=== PATIENT | male | born 1935 | race Caucasian/White ===

== ENCOUNTER 2017-03-17 15:47 | Outpatient (CLI) | payer MEDICARE ==
--- NOTE | 2017-03-17 19:30 | MRI ---
BRAIN MRI WITHOUT CONTRAST 03/17/17 COMPARISON: None. HISTORY: Hallucinations, memory loss. TECHNIQUE: Multiplanar and multisequence MR imaging of the brain is obtained without contrast. FINDINGS: The diffusion weighted imaging demonstrates no evidence for acute infarction. The axial gradient echo imaging demonstrates no evidence for intracranial hemorrhage, There is promi nent degenerative change at the atlanto-axial interspace with significant posterior and degenerative pannus formation. There is also significant multilevel upper cervical spine degenerative change, no t optimally assessed on this exam. Regional bone marrow signal intensity appears within normal limit s. Imaged paranasal sinuses and mastoid air cells are grossly unremarkable. Arterial flow voids at t he axial level of the skull base appear unremarkable on the T2 weighted imaging. There is moderate diffuse cerebral volume loss. There are multiple subcentimeter punctate foci of in creased T2 and FLAIR signal in the periventricular and deep white matter suggesting small vessel dis ease. IMPRESSION: Evidence of small vessel disease and cerebral volume loss. No evidence for acute infraction or intra cranial hemorrhage. No midline shift or mass effect is evident. POS: RED
== END 2017-03-17 15:48 | disposition home or self-care (01) ==
LOC: TBSIIMAG 15:47
PROVIDERS: ATTEND Psychiatry & Neurology Neurology
DX: R44.3 Hallucinations, unspecified (principal); I73.9 Peripheral vascular disease, unspecified
CPT/HCPCS: 70551

== ENCOUNTER 2019-02-28 11:26 | Inpatient (IN) | payer MEDICARE ==
[2019-02-28 12:16] LABS: #Eosinphils 0.2 thou/uL (0.0-0.7); #Lymphocytes 1.2 thou/uL (1.20-3.40); #Monocytes 0.5 thou/uL (0.11-0.59); #Neutrophils 4.6 thou/uL (1.40-6.50); %Basophils 0.6 % (0.0-1.0); %Lymphocytes 17.7 % (21.0-51.0); %Monocytes 7.4 % (0.0-10.0); %Neutrophils 71.4 % (42.0-75.0); Hemoglobin 13.4 g/dL (14.0-18.0); Mean Corpuscular HGB CONC 31.1 g/dL (32.0-36.0); Mean Corpuscular Hemoglobin 28.9 pg (27.0-31.0); Mean Corpuscular Volume 92.9 fL (78.0-98.0); Mean Platelet Volume 8.5 fL (7.4-10.4); Platelet Count 181 thou/uL (130-400); RBC Distribution Width 13.4 % (11.5-14.5); Red Blood Cell (RBC) Count 4.64 mill/uL (4.70-6.10); White Blood Cell (WBC) Count 6.5 thou/uL (4.8-10.8)
[2019-02-28 12:36] LABS: ALT (SGPT) 17 U/L (8-55); AST (SGOT) 26 U/L (5-34); Albumin 3.7 g/dL (3.4-4.8); Alkaline Phosphatase 42 U/L (40-110); Anion Gap 11 mmol/L (10-20); BUN (Urea Nitrogen) 18 mg/dL (8.4-25.7); Bilirubin, Total 0.5 mg/dL (0.2-1.2); Calc. Creatinine Clearance 0 mL/min (70-130); Calcium 9.3 mg/dL (7.8-10.44); Carbon Dioxide 27 mmol/L (23-31); Chloride 102 mmol/L (98-107); Estimated GFR-MDRD 64; Globulin 3.1 g/dL (2.4-3.5); Glucose 177 mg/dL (83-110); Potassium 3.9 mmol/L (3.5-5.1); Protein, Total 6.8 g/dL (5.8-8.1); Sodium 136 mmol/L (136-145)
[2019-02-28 13:31] LABS: CK (CPK) 136 U/L (30-200); Lipase 31 U/L (8-78)
--- NOTE | 2019-02-28 13:36 | RAD ---
PORTABLE CHEST: Date: 02/28/19 INDICATION: Weakness. COMPARISON: 09/17/16. FINDINGS: Borderline cardiomegaly appears stable. 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 L ungs appear clear. There are numerous ununited left rib fractures which are present on the prior exam and appear unchang ed. Prominent degenerative changes at the left shoulder. A right shoulder prosthesis is noted. Deform ity of the left clavicle is again noted. IMPRESSION: Stable findings as described above without acute process. POS: RED
--- NOTE | 2019-02-28 13:38 | CT ---
CT HEAD WITHOUT CONTRAST: Date: 02/28/19 Comparison made to MRI brain dated 03/17/17. FINDINGS: There is cortical atrophy. Ventricles have normal size and position. No evidence of mass or hemorrhag e. No evidence of acute infarct. IMPRESSION: No acute abnormality identified. POS: NESTOR
[2019-02-28 14:03] LABS: Bilirubin Negative (Negative); Blood, Urine Negative (Negative); Clarity Clear (Clear); Glucose, Urine (Dipstick) Normal (Negative); Leukocyte Negative Leu/uL (Negative); Nitrite Negative (Negative); Protein, Urine (Dipstick) Negative (Neg-Trace); Urobilinogen Normal mg/dL (Less than 2)
[2019-02-28] MEDS ORDERED: traMADol HCl 50 MG TAB ONE (20:13)
[2019-02-28] MEDS ORDERED: Ondansetron ODT 4 MG TAB PO PRN (21:13)
[2019-02-28] MEDS ORDERED: Acetaminophen 650 MG Suppository PR PRN (21:13)
[2019-02-28] MEDS ORDERED: Ondansetron PF 4 MG/2 ML Vial IVP PRN (21:13)
[2019-02-28] MEDS ORDERED: hydrALAZINE 20 MG/ML VIAL SLOW IVP PRN (21:17)
[2019-03-01] MEDS ORDERED: Sodium Chloride 0.9% 1,000 ML IV SCH (00:16)
[2019-03-01 01:53] VITALS: BMI 25.1
[2019-03-01] MEDS: Acetaminophen 325 MG TAB PO PRN ×2 (04:29→11:08)
[2019-03-01 05:18] LABS: #Eosinphils 0.1 thou/uL (0.0-0.7); #Lymphocytes 1.1 thou/uL (1.20-3.40); #Monocytes 0.5 thou/uL (0.11-0.59); #Neutrophils 3.2 thou/uL (1.40-6.50); %Basophils 0.6 % (0.0-1.0); %Eosinophils 2.9 % (0.0-10.0); %Lymphocytes 22.8 % (21.0-51.0); %Monocytes 9.9 % (0.0-10.0); %Neutrophils 63.8 % (42.0-75.0); Hemoglobin 12.7 g/dL (14.0-18.0); Mean Corpuscular HGB CONC 32.9 g/dL (32.0-36.0); Mean Corpuscular Hemoglobin 30.9 pg (27.0-31.0); Mean Corpuscular Volume 93.8 fL (78.0-98.0); Mean Platelet Volume 8.2 fL (7.4-10.4); Platelet Count 169 thou/uL (130-400); RBC Distribution Width 13.3 % (11.5-14.5); Red Blood Cell (RBC) Count 4.12 mill/uL (4.70-6.10)
[2019-03-01 05:43] LABS: Anion Gap 11 mmol/L (10-20); BUN (Urea Nitrogen) 12 mg/dL (8.4-25.7); Calc. Creatinine Clearance 73 mL/min (70-130); Calcium 8.6 mg/dL (7.8-10.44); Carbon Dioxide 24 mmol/L (23-31); Cardiac Risk 4.2 (Less than 4.5); Chloride 106 mmol/L (98-107); Cholesterol 158 mg/dl (< 200 Desired); Estimated GFR-MDRD 80; Glucose 161 mg/dL (83-110); HDL Cholesterol 38 mg/dL (>60 Neg Risk); LDL Cholesterol, Calculated 102 mg/dL; Sodium 137 mmol/L (136-145); Triglycerides 91 mg/dL (Less than 150)
[2019-03-01] MEDS ORDERED: Dextrose 5% in Water 1,000 ML IV PRN (05:54)
[2019-03-01] MEDS ORDERED: Dextrose 50% Abboject 50 ML SYRINGE SLOW IVP PRN (05:54)
--- NOTE | 2019-03-01 06:29 | HP ---
PRIMARY CARE DOCTOR: Dr. Tiesha Adam. CODE STATUS: Full code. TIME OF EVALUATION: Around 8:00 p.m. CHIEF COMPLAINT: Evaluation for weakness. HISTORY OF PRESENT ILLNESS: This is an 83-year-old male patient with past medical history of diabetes, came to the hospital after having weakness, especially bilateral lower extremities associated with dizziness and feeling lightheaded. The symptoms were mild to moderate with no clear triggers, no alleviating factors. The symptoms at some point got worse to the point the patient was unable to ambulate because of the dizziness. The symptoms have been present for the past few days. REVIEW OF SYSTEMS: CONSTITUTIONAL: No fever, chills, or generalized weakness. RESPIRATORY: No cough. No sputum production. CARDIOVASCULAR: The patient has no chest pain or palpitations. GASTROINTESTINAL: No nausea, vomiting, or diarrhea. NEURO: The patient had dizziness, feeling lightheaded. PAST MEDICAL HISTORY: Diabetes. PAST SURGICAL HISTORY: Right shoulder surgery, bilateral knee surgery, back surgery, appendectomy, and tonsillectomy. PSYCHIATRIC HISTORY: Dementia. SOCIAL HISTORY: No smoking history. FAMILY HISTORY: Reviewed and noncontributory to current presentation. KNOWN ALLERGIES: No known drug allergies. REPORTED MEDICATIONS: Unknown. PHYSICAL EXAMINATION: VITAL SIGNS: On presentation, blood pressure 176/91, with heart rate 65, respiratory rate was 16. Pain 0/10. Oxygen saturation was 96% on room air. GENERAL APPEARANCE: The patient is alert, oriented, in no acute distress. HEENT: Eyes, normal conjunctivae. Moist oral mucosa. Anicteric. No JVD. RESPIRATORY: Bilateral air entry. No rales. No wheezes. Symmetric expansion. CARDIOVASCULAR: Normal rate. Regular rhythm. No murmurs. No gallop. No edema. ABDOMEN: Soft. Normal bowel sounds. MUSCULOSKELETAL: Baseline range of motion and strength. SKIN: Warm and intact. No pallor. No rash. No redness. Capillary refill seems to be intact. NEURO: No evidence of any new focal weakness. However, the patient has bilateral lower extremity weakness, although strength has recovered by the time of my examination as per patient. The patient has mobility in both lower extremities. PSYCH: The patient is in good mood. No anxiety. Optimal judgment. DIAGNOSTIC DATA: EKG was done. 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 Chest x-ray was reviewed. Stable findings as described above without acute process. Brain CT was done. The patient has no acute abnormalities. LABORATORY DATA: Reviewed. The patient has white count 6.5, hemoglobin 13.4, MCV 92.9, and platelet count . Sodium 136, potassium 3.9, chloride 102, carbon dioxide 27, anion gap 11, BUN 18, creatinine 1.09, GFR 64, glucose , calcium 9.3. LFTs were negative. Beta natriuretic peptide 129. Troponin was negative. Lipid panel was reviewed and was normal. Lipase 31. UA was done and was negative. ASSESSMENT AND PLAN: The patient will be placed in the hospital with following medical problems. 1. Dizziness and lower extremity weakness. The patient will get a stroke protocol to rule out any transient ischemic attack or similar episodes of acute cerebrovascular accident. We will do echo, MRI, and carotid Doppler. We will follow results and treat accordingly. 2. Diabetes. Reconcile home medications. As of now, it is uncontrolled. The patient has hyperglycemia of 177. 3. Deep venous thrombosis prophylaxis. 4. Hyperlipidemia. Reconcile home medications and adjust treatment as needed. 5. Trigeminal neuralgia. Reconcile home medications and adjust treatment as needed. This is not new. Job ID: [id number]
[2019-03-01] MEDS ORDERED: Prevnar 13-Val Conj/PF 0.5 ML SYRINGE IM ONE (09:00)
[2019-03-01] MEDS ORDERED: FLU VACC TS2019-20(65YR UP)/PF 180 MCG/0.5 ML SYRINGE IM ONE (09:00)
[2019-03-01] MEDS: Aspirin 325 mg Enteric Coated Tablet PO SCH (09:40)
[2019-03-01] MEDS: Enoxaparin Sodium 40 MG/0.4 ML SYRINGE SC SCH (09:40)
--- NOTE | 2019-03-01 10:35 | MRI ---
MRI BRAIN NONCONTRAST: DATE: 03/01/19 HISTORY: 83-year-old male with TIA. COMPARISON: MRI of 03/17/17. FINDINGS: On the current study, there is motion artifact degrading the images. The T2-weighted axial sequence i s severely degraded. The FLAIR axial sequence is moderately severely degraded. There is a new finding of an approximately 1.5 x 0.8 cm T2-hyperintense focus in the upper right cere bral centrum semiovale just deep and anterior to the right precentral gyrus, with strongly restricted diffusion. There is no associated hemorrhage. Scattered mild chronic ischemic white matter changes a re present in the bilateral cerebral hemisphere, as demonstrated previously. Ventricles are normal in size and configuration. Diffuse age-appropriate brain parenchymal volume loss. No mass effect, midli ne shift, or extra-axial fluid collection. 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 IMPRESSION: Evidence for acute small right upper frontal cerebral white matter lacunar infarction. JN Felisha POS: CET
--- NOTE | 2019-03-01 11:49 | ULT ---
BILATERAL CAROTID DUPLEX ULTRASOUND: DATE: 03/01/19 HISTORY: TIA. TECHNIQUE: Orellana scale ultrasound with color flow and spectral Doppler imaging of the extracranial carotid artery systems performed bilaterally. FINDINGS: There is minimal plaque formation. The peak systolic velocity in the right ICA measures 53 cm/second with an end-diastolic velocity of 7 cm/second and a systolic ratio of 0.73. The peak systolic velocity in the left ICA measures 71 cm/second with an end-diastolic velocity of 17 cm/second and a systolic ratio of 0.75. Flow in both vertebral arteries remains antegrade. IMPRESSION: No evidence of hemodynamically significant stenosis. POS: OFF
[2019-03-01] MEDS: ALPRAZolam 0.25 MG TAB PO PRN ×2 (13:04→19:06)
[2019-03-01] MEDS: HumaLOG 300 UNITS/3 ML VIAL SC PRN ×2 (13:04→17:50)
--- NOTE | 2019-03-01 16:41 | PDOC.HOSPP ---
- Subjective Encounter Date: 03/01/19 Encounter Time: 16:30 Subjective: f/u for likely lacunar CVA on R-side. Some mild weakness in L arm but stood at bedside with PT. No other deficits reported but feels weak. - Objective Vital Signs & Weight: Vital Signs (12 hours) Temp Pulse Pulse Pulse Resp BP BP 03/01/19 16:00 97.6 F 78 18 03/01/19 15:48 66 75 144/81 H 152/89 H 03/01/19 12:00 98.6 F 68 18 03/01/19 08:00 98 F 71 16 03/01/19 07:00 97.5 F L 64 18 BP BP BP BP Pulse Ox 03/01/19 16:00 140/91 H 92 L 03/01/19 15:48 03/01/19 12:00 162/89 H 94 L 03/01/19 08:00 171/80 H 95 03/01/19 07:00 158/97 H 162/95 H 182/90 H 93 L Weight Admit Weight 190 lb 4.8 oz Weight 190 lb 4.8 oz I&O: 02/28/19 03/01/19 03/02/19 06:59 06:59 06:59 Intake Total 650 Output Total 325 Balance 325 Result Diagrams: 03/01/19 04:52 03/01/19 04:52 Additional Labs: Accuchecks 03/01/19 03/01/19 10:56 06:07 POC Glucose 195 H 152 H Laboratory Tests 02/28/19 02/28/19 02/28/19 12:19 12:19 12:27 Ammonia 24 Creatine Kinase 136 B-Natriuretic Peptide Triglycerides Cholesterol LDL Cholesterol, Calc HDL Cholesterol TSH 3rd Generation 3.2627 02/28/19 03/01/19 12:27 04:52 Ammonia Creatine Kinase B-Natriuretic Peptide 129.4 H Triglycerides 91 Cholesterol 158 LDL Cholesterol, Calc 102 HDL Cholesterol 38 TSH 3rd Generation Radiology Reviewed by me: Yes (MRI brain - lacunar infarct on R) EKG Reviewed by me: Yes (Tele - SR) Hospitalist ROS - Medication Medications: Active Medications Generic Name Dose Route Start Last Admin Trade Name Freq PRN Reason Stop Dose Admin Acetaminophen 650 mg 02/28/19 21:13 03/01/19 11:08 Tylenol PO 650 mg Q4H PRN Administration Headache/Fever/Mild Pain (1-3) Alprazolam 0.25 mg 03/01/19 12:22 03/01/19 13:04 Xanax PO 0.25 mg BIDPRN PRN Administration Anxiety Aspirin 325 mg 03/01/19 09:00 03/01/19 09:40 Ecotrin PO 325 mg DAILY CHARITY Administration Enoxaparin Sodium 40 mg 03/01/19 09:00 03/01/19 09:40 Lovenox SC 40 mg 0900 CHARITY Administration Insulin Human Lispro 0 units 03/01/19 05:54 03/01/19 13:04 Humalog SC 2 unit .MILD SLIDING SCALE PRN Administration Mild Correctional Scale - Exam General Appearance: NAD, awake alert Eye: PERRL, anicteric sclera ENT: normocephalic atraumatic, no oropharyngeal lesions Neck: supple, symmetric, no JVD, no thyromegaly, no lymphadenopathy, no carotid bruit Heart: RRR, no murmur, no gallops, no rubs, normal peripheral pulses Respiratory: CTAB, no wheezes, no rales, no ronchi, normal chest expansion Gastrointestinal: soft, non-tender, non-distended, normal bowel sounds, no palpable masses Extremities: no cyanosis, no clubbing, no edema Skin: normal turgor, no lesions Neurological: cranial nerve grossly intact Neurological - other findings: L arm weakness Musculoskeletal: generalized weakness Psychiatric: A&O x 3 Hosp A/P (1) CVA (cerebral vascular accident) Code(s): I63.9 - CEREBRAL INFARCTION, UNSPECIFIED Status: Acute Qualifiers: Laterality of affected vessel: right Plan: Lacunar, continue ASA 325mg daily, Lipitor, Stroke protocol, Rehab screening (2) Dementia Code(s): F03.90 - UNSPECIFIED DEMENTIA WITHOUT BEHAVIORAL DISTURBANCE Status: Chronic Plan: Continue Aricept (3) Diabetes mellitus Code(s): E11.9 - TYPE 2 DIABETES MELLITUS WITHOUT COMPLICATIONS Status: Chronic Plan: Resume home DM regimen, serial accuchecks (4) HTN (hypertension) Code(s): I10 - ESSENTIAL (PRIMARY) HYPERTENSION Status: Chronic Qualifiers: Hypertension type: essential hypertension Qualified Code(s): I10 - Essential (primary) hypertension Plan: Labile, resume Atenolol, titrate regimen to optimal response - Plan plan discussed w/ family, PT/OT, pediatric social worker, DVT proph w/SCDs Stable currently Continue ASA 325mg daily 2D echo pending PT/OT for functional assessment Rehab screening
--- NOTE | 2019-03-01 17:22 | EKG ---
Test Reason : Blood Pressure : / mmHG Vent. Rate : 059 BPM Atrial Rate : 060 BPM P-R Int : 000 ms QRS Dur : 154 ms QT Int : 458 ms P-R-T Axes : 000 -67 -30 degrees QTc Int : 453 ms Wide QRS rhythm Right bundle branch block Left anterior fascicular block Bifascicular block Abnormal ECG Confirmed by LUISA LINDSEY MD ([id number]), publication editor TAMRA GARCIA ([id number]) on 03/01/2019 5:22:25 PM Referred By: Confirmed By:LUISA LINDSEY MD
--- NOTE | 2019-03-01 20:45 | CON ---
DATE OF CONSULTATION: 03/01/2019 CONSULTING PHYSICIAN: Hospitalist Services. IMPRESSION: Small right cortical infarct with left-sided weakness. PLAN: 1. Statin has been added. 2. Continue aspirin. HISTORY OF PRESENT ILLNESS: Mr. Granados is an 83-year-old gentleman who is actually one of the junction boys of [employer]. 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 His noted that on Thursday he was unable to get up from his chair. He works out with a human resources trainer several days a week. He was tending to lift the left, subsequently brought him in for evaluation. MRI of the brain confirmed an acute area of cortical infarction in the right parietal region. His carotid ultrasound does not show any stenosis. His echocardiogram is pending. He has no cardiac history. He does have some mild memory difficulties. He still follows [employer] football. PAST MEDICAL HISTORY: As listed above. ALLERGIES: NONE REPORTED. SOCIAL HISTORY: No tobacco or alcohol. FAMILY HISTORY: Noncontributory. REVIEW OF SYSTEMS: Ten-system review of systems is otherwise negative. PHYSICAL EXAMINATION: GENERAL: He is a tall, thin, elderly gentleman, lying in bed, in no distress. VITAL SIGNS: Blood pressure 138/82, pulse 72, respirations 18, and temperature 98.7. HEENT: Pupils are equal. Conjunctiva are clear. Oropharynx is clear. Cranium , normocephalic and atraumatic. NECK: Supple. No lymphadenopathy. EXTREMITIES: No cyanosis or edema. NEUROLOGIC: He is awake and cooperative. His speech is fluent and clear. No facial asymmetry is noted. He has some drift and fix on the left side. He has antigravity strength in the left leg, but it is mildly diminished compared to the right. Sensation is intact. No abnormal movements are seen. IMAGING: EKG shows a sinus rhythm. SUMMARY: An 83-year-old gentleman with some left-sided weakness. I think he would probably be a good candidate for inpatient rehab. I agree with the addition of Lipitor. His workup is complete other than reviewing his echocardiogram. I will be available if there are any other questions. Job ID: [id number] [facility]
[2019-03-01] MEDS: Atorvastatin Calcium 40 MG TAB PO SCH (21:28)
[2019-03-01] MEDS: Donepezil HCl 10 MG TAB PO SCH (21:28)
[2019-03-02] MEDS: HumaLOG 300 UNITS/3 ML VIAL SC PRN ×2 (06:25→11:49)
[2019-03-02] MEDS ORDERED: METFORMIN HCL PO SCH (09:00)
[2019-03-02] MEDS ORDERED: Aspirin Chewable 81 MG TAB PO SCH (09:00)
[2019-03-02] MEDS ORDERED: Non-Formulary Item 1 EACH (Multivit-Min/Fa/Lycopen/Lutein [Centrum Silver Tablet] 1 EACH) PO SCH (09:00)
[2019-03-02] MEDS ORDERED: Calcium Carbonate + Vit D 1 TAB PO SCH (09:00)
[2019-03-02] MEDS ORDERED: [UNRECOGNIZED DRUG - OTHER] PO SCH (09:00)
[2019-03-02] MEDS ORDERED: [UNRECOGNIZED DRUG - MIXTURE] PO SCH (09:00)
[2019-03-02] MEDS ORDERED: LINAGLIPTIN PO SCH (09:00)
[2019-03-02] MEDS ORDERED: Cetirizine HCl 10 MG TAB PO SCH (09:00)
[2019-03-02] MEDS: Multivitamin W/ Minerals 1 TAB PO SCH (09:16)
[2019-03-02] MEDS: Citalopram 20 MG TAB PO SCH (09:16)
[2019-03-02] MEDS: Aspirin 325 mg Enteric Coated Tablet PO SCH (09:16)
[2019-03-02] MEDS: Atenolol 25 MG TAB PO SCH (09:16)
[2019-03-02] MEDS: Fenofibrate Nanocrystallized 145 MG TAB PO SCH (09:16)
[2019-03-02] MEDS: Calcium Carbonate + Vit D 1 TAB PO SCH (09:17)
[2019-03-02] MEDS: Loratadine 10 MG TAB PO SCH (09:17)
[2019-03-02] MEDS: Enoxaparin Sodium 40 MG/0.4 ML SYRINGE SC SCH (09:17)
--- NOTE | 2019-03-02 10:15 | PDOC.HOSPP ---
- Subjective Encounter Date: 03/02/19 Encounter Time: 10:00 Subjective: f/u for acute CVA of R-side with LUE weakness and mild ataxia. Feels a little better today and walked short distance with PT using RW. Appetite ok. - Objective Vital Signs & Weight: Vital Signs (12 hours) Temp Pulse Resp BP Pulse Ox 03/02/19 09:16 60 03/02/19 07:27 98.7 F 60 22 H 153/83 H 93 L 03/02/19 03:49 97.5 F L 60 18 131/66 94 L 03/02/19 00:00 97.3 F L 66 16 120/73 96 Weight Admit Weight 190 lb 4.8 oz Weight 190 lb 4.8 oz I&O: 03/01/19 03/02/19 03/03/19 06:59 06:59 06:59 Intake Total 650 20 Output Total 325 Balance 325 20 Result Diagrams: 03/01/19 04:52 03/01/19 04:52 Additional Labs: Accuchecks 03/02/19 03/01/19 03/01/19 06:06 23:53 16:42 POC Glucose 155 H 132 H 160 H 03/01/19 10:56 POC Glucose 195 H Laboratory Tests 02/28/19 02/28/19 02/28/19 12:19 12:19 12:27 Ammonia 24 Creatine Kinase 136 B-Natriuretic Peptide Triglycerides Cholesterol LDL Cholesterol, Calc HDL Cholesterol TSH 3rd Generation 3.2627 02/28/19 03/01/19 12:27 04:52 Ammonia Creatine Kinase B-Natriuretic Peptide 129.4 H Triglycerides 91 Cholesterol 158 LDL Cholesterol, Calc 102 HDL Cholesterol 38 TSH 3rd Generation Radiology Reviewed by me: Yes (Echo - EF 55-60%, diast dysfxn) EKG Reviewed by me: Yes (Tele - SR) Hospitalist ROS - Medication Medications: Active Medications Generic Name Dose Route Start Last Admin Trade Name Freq PRN Reason Stop Dose Admin Acetaminophen 650 mg 02/28/19 21:13 03/01/19 11:08 Tylenol PO 650 mg Q4H PRN Administration Headache/Fever/Mild Pain (1-3) Alprazolam 0.25 mg 03/01/19 12:22 03/01/19 19:06 Xanax PO 0.25 mg BIDPRN PRN Administration Anxiety Aspirin 325 mg 03/01/19 09:00 03/02/19 09:16 Ecotrin PO 325 mg DAILY CHARITY Administration Atenolol 25 mg 03/02/19 09:00 03/02/19 09:16 Tenormin PO 25 mg DAILY CHARITY Administration Atorvastatin Calcium 40 mg 03/01/19 21:00 03/01/19 21:28 Lipitor PO 40 mg HS CHARITY Administration Calcium/Vitamin D 1 tab 03/02/19 09:00 03/02/19 09:17 Caltrate 600 + Vit D PO 1 tab DAILY CHARITY Administration Citalopram Hydrobromide 40 mg 03/02/19 09:00 03/02/19 09:16 Celexa PO 40 mg DAILY CHARITY Administration Donepezil HCl 10 mg 03/01/19 21:00 03/01/19 21:28 Aricept PO 10 mg HS CHARITY Administration Enoxaparin Sodium 40 mg 03/01/19 09:00 03/02/19 09:17 Lovenox SC 40 mg 0900 CHARITY Administration Fenofibrate 145 mg 03/02/19 09:00 03/02/19 09:16 Tricor PO 145 mg DAILY CHARITY Administration Insulin Human Lispro 0 units 03/01/19 05:54 03/02/19 06:25 Humalog SC 2 unit .MILD SLIDING SCALE PRN Administration Mild Correctional Scale Iron/Minerals/Multivitamins 1 tab 03/02/19 09:00 03/02/19 09:16 Theragran M PO 1 tab DAILY CHARITY Administration Loratadine 10 mg 03/02/19 09:00 03/02/19 09:17 Claritin PO 10 mg DAILY CHARITY Administration - Exam General Appearance: NAD, awake alert Eye: PERRL, anicteric sclera ENT: normocephalic atraumatic, no oropharyngeal lesions Neck: supple, symmetric, no JVD, no thyromegaly, no lymphadenopathy Heart: RRR, no murmur, no gallops, no rubs, normal peripheral pulses Respiratory: CTAB, no wheezes, no rales, no ronchi, normal chest expansion Gastrointestinal: soft, non-tender, non-distended, normal bowel sounds Extremities: no cyanosis, no clubbing, no edema Skin: normal turgor, no lesions Neurological: cranial nerve grossly intact, no new deficit Neurological - other findings: LUE weakness Musculoskeletal: normal tone, generalized weakness Psychiatric: normal affect, A&O x 3 Hosp A/P (1) CVA (cerebral vascular accident) Code(s): I63.9 - CEREBRAL INFARCTION, UNSPECIFIED Status: Acute Qualifiers: Laterality of affected vessel: right Plan: Continue ASA, Lipitor, general stroke protocol, Inpt Rehab screening in progress (2) Dementia Code(s): F03.90 - UNSPECIFIED DEMENTIA WITHOUT BEHAVIORAL DISTURBANCE Status: Chronic Plan: Continue Aricept/Celexa (3) Diabetes mellitus Code(s): E11.9 - TYPE 2 DIABETES MELLITUS WITHOUT COMPLICATIONS Status: Chronic Plan: ISS, continue home DM regimen, ADA (4) HTN (hypertension) Code(s): I10 - ESSENTIAL (PRIMARY) HYPERTENSION Status: Chronic Qualifiers: Hypertension type: essential hypertension Qualified Code(s): I10 - Essential (primary) hypertension Plan: Continue home BP regimen, stable - Plan plan discussed w/ family, PT/OT, geriatric social worker, out of bed/ambulate, DVT proph w/SCDs Stable currently Continue ASA 325mg daily Continue Lipitor 40mg HS PT/OT for functional assessment Rehab screening in progress Trial Lidocaine 5% patch for neck/ear pain
[2019-03-02] MEDS: Lidocaine 5% Patch TD SCH (11:36)
[2019-03-02] MEDS: Atorvastatin Calcium 40 MG TAB PO SCH (20:28)
[2019-03-02] MEDS: Donepezil HCl 10 MG TAB PO SCH (20:31)
[2019-03-02] MEDS: Lidocaine Patch Removal 1 EACH TOP SCH (23:14)
[2019-03-03] MEDS: HumaLOG 300 UNITS/3 ML VIAL SC PRN ×3 (06:24→17:56)
[2019-03-03] MEDS: Aspirin 325 mg Enteric Coated Tablet PO SCH (09:26)
[2019-03-03] MEDS: Atenolol 25 MG TAB PO SCH (09:26)
[2019-03-03] MEDS: Loratadine 10 MG TAB PO SCH (09:28)
[2019-03-03] MEDS: Citalopram 20 MG TAB PO SCH (09:28)
[2019-03-03] MEDS: Fenofibrate Nanocrystallized 145 MG TAB PO SCH (09:28)
[2019-03-03] MEDS: Calcium Carbonate + Vit D 1 TAB PO SCH (09:28)
[2019-03-03] MEDS: Enoxaparin Sodium 40 MG/0.4 ML SYRINGE SC SCH (09:30)
[2019-03-03] MEDS: Multivitamin W/ Minerals 1 TAB PO SCH (09:30)
[2019-03-03] MEDS: Lisinopril 5 MG TAB PO SCH (10:21)
[2019-03-03] MEDS: Lidocaine 5% Patch TD SCH (10:22)
--- NOTE | 2019-03-03 14:27 | PDOC.HOSPP ---
- Subjective Subjective: Seen and examined. Patient sitting upright in bed, talking in full sentences, breathing well on room air. Patient significant other at bedside able to aid in history also. Time was given for questions, all answered in detail. Patient denies any palpitations and denies a history of atrial fibrillation ever in the past. Patient with an abnormal MRI confirming small acute frontal lacunar infarct, otherwise CVA workup has been benign. Patient may require Holter monitor in the outpatient setting to further evaluate for arrhythmia as a cause of CVA. - Objective Vital Signs & Weight: Vital Signs (12 hours) Temp Pulse Resp BP BP Pulse Ox 03/03/19 11:43 97.6 F 55 L 20 153/78 H 93 L 03/03/19 10:21 69 144/82 H 03/03/19 09:26 69 144/82 H 03/03/19 08:02 98.2 F 69 22 H 144/82 H 92 L 03/03/19 03:48 97.6 F 56 L 18 154/84 H 93 L Weight Admit Weight 190 lb 4.8 oz Weight 190 lb 4.8 oz I&O: 03/02/19 03/03/19 03/04/19 06:59 06:59 06:59 Intake Total 20 Balance 20 Result Diagrams: 03/01/19 04:52 03/01/19 04:52 Additional Labs: Accuchecks 03/03/19 03/03/19 03/02/19 10:58 05:51 19:57 POC Glucose 204 H 158 H 185 H 03/02/19 17:05 POC Glucose 138 H Radiology Reviewed by me: Yes (MRI brain) Hospitalist ROS - Review of Systems All other systems reviewed; all pertinent +/- noted in HPI/Subj - Medication Medications: Active Medications Generic Name Dose Route Start Last Admin Trade Name Freq PRN Reason Stop Dose Admin Acetaminophen 650 mg 02/28/19 21:13 03/01/19 11:08 Tylenol PO 650 mg Q4H PRN Administration Headache/Fever/Mild Pain (1-3) Alprazolam 0.25 mg 03/01/19 12:22 03/01/19 19:06 Xanax PO 0.25 mg BIDPRN PRN Administration Anxiety Aspirin 325 mg 03/01/19 09:00 03/03/19 09:26 Ecotrin PO 325 mg DAILY CHARITY Administration Atenolol 25 mg 03/02/19 09:00 03/03/19 09:26 Tenormin PO 25 mg DAILY CHARITY Administration Atorvastatin Calcium 40 mg 03/01/19 21:00 03/02/19 20:28 Lipitor PO 40 mg HS CHARITY Administration Calcium/Vitamin D 1 tab 03/02/19 09:00 03/03/19 09:28 Caltrate 600 + Vit D PO 1 tab DAILY CHARITY Administration Citalopram Hydrobromide 40 mg 03/02/19 09:00 03/03/19 09:28 Celexa PO 40 mg DAILY CHARITY Administration Donepezil HCl 10 mg 03/01/19 21:00 03/02/19 20:31 Aricept PO 10 mg HS CHARITY Administration Enoxaparin Sodium 40 mg 03/01/19 09:00 03/03/19 09:30 Lovenox SC 40 mg 0900 CHARITY Administration Fenofibrate 145 mg 03/02/19 09:00 03/03/19 09:28 Tricor PO 145 mg DAILY CHARITY Administration Insulin Human Lispro 0 units 03/01/19 05:54 03/03/19 11:53 Humalog SC 3 unit .MILD SLIDING SCALE PRN Administration Mild Correctional Scale Iron/Minerals/Multivitamins 1 tab 03/02/19 09:00 03/03/19 09:30 Theragran M PO 1 tab DAILY CHARITY Administration Lidocaine 1 patch 03/02/19 11:00 03/03/19 10:22 Lidoderm 5% Patch TD 1 patch 1100 CHARITY Administration Lisinopril 5 mg 03/03/19 09:00 03/03/19 10:21 Zestril PO 5 mg DAILY CHARITY Administration Loratadine 10 mg 03/02/19 09:00 03/03/19 09:28 Claritin PO 10 mg DAILY CHARITY Administration Miscellaneous Medication 1 each 03/02/19 23:00 03/02/19 23:14 Lidocaine Patch Removal TOP 1 each 2300 CHARITY Administration - Exam General Appearance: NAD, awake alert Eye: anicteric sclera ENT: normocephalic atraumatic, moist mucosa Neck: supple, symmetric, no lymphadenopathy Heart: RRR, no murmur, no gallops, no rubs Respiratory: CTAB, no wheezes, no rales, no ronchi, normal chest expansion Gastrointestinal: soft, non-tender, no guarding, no rigidity Extremities: no edema Skin: no lesions, no rashes Neurological - other findings: Mild weakness on the left side of the body with both upper and lower extrem Musculoskeletal: normal tone, normal strength Psychiatric: normal affect, A&O x 3 Hosp A/P (1) CVA (cerebral vascular accident) Code(s): I63.9 - CEREBRAL INFARCTION, UNSPECIFIED Status: Acute Qualifiers: Laterality of affected vessel: right (2) Dementia Code(s): F03.90 - UNSPECIFIED DEMENTIA WITHOUT BEHAVIORAL DISTURBANCE Status: Chronic (3) Diabetes mellitus Code(s): E11.9 - TYPE 2 DIABETES MELLITUS WITHOUT COMPLICATIONS Status: Chronic (4) Dyslipidemia Code(s): E78.5 - HYPERLIPIDEMIA, UNSPECIFIED Status: Chronic (5) HTN (hypertension) Code(s): I10 - ESSENTIAL (PRIMARY) HYPERTENSION Status: Chronic Qualifiers: Hypertension type: essential hypertension Qualified Code(s): I10 - Essential (primary) hypertension (6) Osteoarthritis Code(s): M19.90 - UNSPECIFIED OSTEOARTHRITIS, UNSPECIFIED SITE Status: Chronic (7) Osteoporosis Code(s): M81.0 - AGE-RELATED OSTEOPOROSIS W/O CURRENT PATHOLOGICAL FRACTURE Status: Chronic - Plan Plan: medical unit with telemetry, stroke unit cardiology consultation, recommendations appreciated neurology consultation, recommendations appreciated continuous telemetry to monitor for arrhythmia, may require extended quality assurance monitor chassis in the outpatient setting CVA regimen: aspirin 325 mg daily lisinopril 5 mg daily atorvastatin 40 mg daily continue other home medications as able CM evaluation for rehab placement PT/ OT/ ST eval and treat
--- NOTE | 2019-03-03 17:32 | CON ---
DATE OF CONSULTATION: REASON FOR CONSULTATION: Dysrhythmia and recent TIA. Please see Dr. Terrell Rodgers's full consultation for details. HISTORY OF PRESENT ILLNESS: Briefly, Mr. Granados re-presented with TIA-like symptoms. He underwent a brain MRI that did suggest a small acute right upper frontal cerebral white matter lacunar infarct. He has no previous history of dysrhythmias. He is on telemetry monitoring. There was concern for atrial fibrillation. After review, this was not felt to be consistent with atrial fibrillation. His last LVEF estimated at 55% to 60% PHYSICAL EXAMINATION: GENERAL: He does appear weak with unsteady gait. VITAL SIGNS: Blood pressure 118/61, pulse 56, temperature 98.6. NEUROLOGIC: The patient is alert and oriented x3 with no focal neurologic deficits. HEENT: Sclerae without icterus. Mouth has moist mucous membranes with normal pallor. NECK: No JVD. Carotid upstroke brisk. No bruits bilaterally. LUNGS: Clear to auscultation with unlabored respirations. BACK: No scoliosis or kyphosis. CARDIAC: Regular rate and rhythm with normal S1 and S2. No S3 or S4 noted. No significant rubs, murmurs, thrills, or gallops noted throughout the precordium. PMI is not displaced. There is no parasternal heave. ABDOMEN: Soft, nontender, nondistended. No peritoneal signs present. No hepatosplenomegaly. No abnormal striae. EXTREMITIES: 2+ femoral and 2+ dorsalis pedis pulses. No cyanosis, clubbing, or edema. SKIN: No gross abnormalities. LABORATORY DATA: Hemoglobin 12.7. Creatinine 1.0. EKG shows normal sinus rhythm with no dysrhythmias present. IMPRESSION: Recent transient ischemic attack. RECOMMENDATIONS: We would recommend 3-week event recorder to assess for any significant dysrhythmia as an outpatient. Otherwise, from my standpoint, I have no further recommendations. We will plan on sending a 3-week event recorder to Mr. Granados. Job ID: [id number]
[2019-03-03] MEDS: Atorvastatin Calcium 40 MG TAB PO SCH (21:11)
[2019-03-03] MEDS: Donepezil HCl 10 MG TAB PO SCH (21:11)
[2019-03-03] MEDS: ALPRAZolam 0.25 MG TAB PO PRN (23:33)
[2019-03-04] MEDS: Lidocaine Patch Removal 1 EACH TOP SCH (00:01)
[2019-03-04] MEDS: HumaLOG 300 UNITS/3 ML VIAL SC PRN ×2 (06:21→10:53)
--- NOTE | 2019-03-04 07:29 | CON ---
DATE OF CONSULTATION: 03/03/2019 HISTORY OF PRESENT ILLNESS/HOSPITAL COURSE: Mr. David Granados is an 83-year-old male, who has a past medical history significant for diabetes and no known heart disease, came to the ER after 2 to 3 days of dizziness and bilateral lower extremity weakness. He was admitted for TIA workup and was found to have a cerebral infarct. Neurology was consulted and recommended dual anti-platelet therapy and rehab. The patient has been set up for cardiac rehab. Vital signs have been stable throughout his hospitalization. During his hospitalization, he was determined to have some sort of possible AV block that quickly resolved. No EKG was obtained, but tele monitoring was reviewed and revealed possibly a prolonged MT interval indicating a 1st degree AV block. The patient was asymptomatic at that time. Currently, denies any chest pain, shortness of breath, palpitations, or headache. No other systemic symptoms to report. REVIEW OF SYSTEMS: A 12-point review of systems has been conducted and is negative except for the above symptoms noted. PAST MEDICAL HISTORY: Diabetes and dementia. PAST SURGICAL HISTORY: Orthopedic shoulder and knee surgeries, back, appendectomy, and tonsillectomy. PHYSICAL EXAMINATION: VITAL SIGNS: On my exam, blood pressure 118/61, pulse 56, respirations 24, saturating 92% on room air with a temperature of 98.6. GENERAL: No acute distress. HEENT: Normocephalic and atraumatic. RESPIRATORY: Clear to auscultation bilaterally with no rhonchi or rales. CARDIOVASCULAR: Regular rate and rhythm, S1 and S2. No murmurs auscultated. PMI nondisplaced. ABDOMEN: Nontender to palpation. SKIN: Without rash or lesions. NEURO: Cranial nerves grossly intact. Focal deficits in bilateral lower extremities noted. DIAGNOSTIC STUDIES: EKG reveals a right bundle-branch block and a prolonged MT interval. Chest x-ray reveals no acute cardiopulmonary abnormality. Lab significant for a BNP of 129.4. Echocardiogram has no reduced ejection fraction, and troponin is negative. ASSESSMENT AND PLAN: 1. Prolonged MT interval-asymptomatic at this time. We will set up for outpatient Holter monitor placement. 2. Cerebrovascular accident. Management per Neurology and primary team. Dual anti-platelet. Agree with recommendations. 3. Diabetes mellitus type 2. Stable at this time. Management per primary team. 4. Hyperlipidemia. Continue home medicines. Thank you for the consult and involving us in your patient's care. Please reach out for further questions. Job ID: [id number]
[2019-03-04] MEDS: Calcium Carbonate + Vit D 1 TAB PO SCH (09:29)
[2019-03-04] MEDS: Aspirin 325 mg Enteric Coated Tablet PO SCH (09:29)
[2019-03-04] MEDS: Atenolol 25 MG TAB PO SCH (09:29)
[2019-03-04] MEDS: Citalopram 20 MG TAB PO SCH (09:30)
[2019-03-04] MEDS: Lisinopril 5 MG TAB PO SCH (09:30)
[2019-03-04] MEDS: Loratadine 10 MG TAB PO SCH (09:30)
[2019-03-04] MEDS: Fenofibrate Nanocrystallized 145 MG TAB PO SCH (09:30)
[2019-03-04] MEDS: Multivitamin W/ Minerals 1 TAB PO SCH (09:30)
[2019-03-04] MEDS: Enoxaparin Sodium 40 MG/0.4 ML SYRINGE SC SCH (09:31)
[2019-03-04] MEDS: Lidocaine 5% Patch TD SCH (10:46)
--- NOTE | 2019-03-04 15:29 | PDOC.HOSPP ---
- Subjective Subjective: Seen and examined. I watch the patient transfer from the chair to the bed, he is bent over it near 90 angle holding onto the front wheel walker and leaning over this Walker. Patient elevated fall risk. I called [facility] today to do peer- to-peer for rehab placement, and was told that their window has and would need to be filed under an appeal. Patient in good spirits. at bedside , all questions answered in detail. - Objective Vital Signs & Weight: Vital Signs (12 hours) Temp Pulse Pulse Pulse Resp BP BP 03/04/19 12:00 97.4 F L 56 L 16 03/04/19 09:30 63 132/80 03/04/19 09:29 63 132/80 03/04/19 09:01 76 73 122/72 03/04/19 07:55 98.4 F 63 18 03/04/19 04:39 97.2 F L 59 L 16 BP BP Pulse Ox 03/04/19 12:00 110/62 92 L 03/04/19 09:30 03/04/19 09:29 03/04/19 09:01 118/70 03/04/19 07:55 132/80 94 L 03/04/19 04:39 146/88 H 92 L Weight Admit Weight 190 lb 4.8 oz Weight 190 lb 4.8 oz I&O: 03/03/19 03/04/19 03/05/19 06:59 06:59 06:59 Intake Total 120 Output Total 650 Balance -530 Result Diagrams: 03/01/19 04:52 03/01/19 04:52 Additional Labs: Accuchecks 03/04/19 03/04/19 03/03/19 10:48 05:06 21:12 POC Glucose 213 H 182 H 183 H 03/03/19 17:02 POC Glucose 159 H Radiology Reviewed by me: Yes (US carotid) Hospitalist ROS - Review of Systems All other systems reviewed; all pertinent +/- noted in HPI/Subj - Medication Medications: Active Medications Generic Name Dose Route Start Last Admin Trade Name Freq PRN Reason Stop Dose Admin Acetaminophen 650 mg 02/28/19 21:13 03/01/19 11:08 Tylenol PO 650 mg Q4H PRN Administration Headache/Fever/Mild Pain (1-3) Alprazolam 0.25 mg 03/01/19 12:22 03/03/19 23:33 Xanax PO 0.25 mg BIDPRN PRN Administration Anxiety Aspirin 325 mg 03/01/19 09:00 03/04/19 09:29 Ecotrin PO 325 mg DAILY CHARITY Administration Atenolol 25 mg 03/02/19 09:00 03/04/19 09:29 Tenormin PO 25 mg DAILY CHARITY Administration Atorvastatin Calcium 40 mg 03/01/19 21:00 03/03/19 21:11 Lipitor PO 40 mg HS CHARITY Administration Calcium/Vitamin D 1 tab 03/02/19 09:00 03/04/19 09:29 Caltrate 600 + Vit D PO 1 tab DAILY CHARITY Administration Citalopram Hydrobromide 40 mg 03/02/19 09:00 03/04/19 09:30 Celexa PO 40 mg DAILY CHARITY Administration Donepezil HCl 10 mg 03/01/19 21:00 03/03/19 21:11 Aricept PO 10 mg HS CHARITY Administration Enoxaparin Sodium 40 mg 03/01/19 09:00 03/04/19 09:31 Lovenox SC 40 mg 0900 CHARITY Administration Fenofibrate 145 mg 03/02/19 09:00 03/04/19 09:30 Tricor PO 145 mg DAILY CHARITY Administration Insulin Human Lispro 0 units 03/01/19 05:54 03/04/19 10:53 Humalog SC 3 unit .MILD SLIDING SCALE PRN Administration Mild Correctional Scale Iron/Minerals/Multivitamins 1 tab 03/02/19 09:00 03/04/19 09:30 Theragran M PO 1 tab DAILY CHARITY Administration Lidocaine 1 patch 03/02/19 11:00 03/04/19 10:46 Lidoderm 5% Patch TD 1 patch 1100 CHARITY Administration Lisinopril 5 mg 03/03/19 09:00 03/04/19 09:30 Zestril PO 5 mg DAILY CHARITY Administration Loratadine 10 mg 03/02/19 09:00 03/04/19 09:30 Claritin PO 10 mg DAILY CHARITY Administration Miscellaneous Medication 1 each 03/02/19 23:00 03/04/19 00:01 Lidocaine Patch Removal TOP 1 each 2300 CHARITY Administration - Exam General Appearance: NAD, awake alert Eye: anicteric sclera ENT: normocephalic atraumatic, moist mucosa Neck: supple, symmetric, no lymphadenopathy Heart: RRR, no murmur, no gallops, no rubs Respiratory: CTAB, no wheezes, no rales, no ronchi, normal chest expansion Gastrointestinal: soft, non-tender, no guarding, no rigidity Extremities: no cyanosis, no edema Skin: normal turgor Neurological: cranial nerve grossly intact, normal sensation to touch, no new deficit Musculoskeletal: generalized weakness Psychiatric: normal affect, A&O x 3 Hosp A/P (1) CVA (cerebral vascular accident) Code(s): I63.9 - CEREBRAL INFARCTION, UNSPECIFIED Status: Acute Qualifiers: Laterality of affected vessel: right (2) Dementia Code(s): F03.90 - UNSPECIFIED DEMENTIA WITHOUT BEHAVIORAL DISTURBANCE Status: Chronic (3) Diabetes mellitus Code(s): E11.9 - TYPE 2 DIABETES MELLITUS WITHOUT COMPLICATIONS Status: Chronic (4) Dyslipidemia Code(s): E78.5 - HYPERLIPIDEMIA, UNSPECIFIED Status: Chronic (5) HTN (hypertension) Code(s): I10 - ESSENTIAL (PRIMARY) HYPERTENSION Status: Chronic Qualifiers: Hypertension type: essential hypertension Qualified Code(s): I10 - Essential (primary) hypertension (6) Osteoarthritis Code(s): M19.90 - UNSPECIFIED OSTEOARTHRITIS, UNSPECIFIED SITE Status: Chronic (7) Osteoporosis Code(s): M81.0 - AGE-RELATED OSTEOPOROSIS W/O CURRENT PATHOLOGICAL FRACTURE Status: Chronic - Plan Plan: medical unit with telemetry, stroke unit cardiology consultation, recommendations appreciated neurology consultation, recommendations appreciated continuous telemetry to monitor for arrhythmia, may require extended awake overnight monitor in the outpatient setting CVA regimen: - aspirin 325 mg daily - lisinopril 5 mg daily - atorvastatin 40 mg daily continue other home medications as able CM evaluation for rehab placement PT/ OT/ ST eval and treat
[2019-03-04] MEDS: Atorvastatin Calcium 40 MG TAB PO SCH (21:39)
[2019-03-04] MEDS: Donepezil HCl 10 MG TAB PO SCH (21:39)
[2019-03-05] MEDS: Lidocaine Patch Removal 1 EACH TOP SCH ×2 (06:48→22:27)
[2019-03-05] MEDS: Fenofibrate Nanocrystallized 145 MG TAB PO SCH (08:45)
[2019-03-05] MEDS: Multivitamin W/ Minerals 1 TAB PO SCH (08:45)
[2019-03-05] MEDS: Lisinopril 5 MG TAB PO SCH (08:45)
[2019-03-05] MEDS: Calcium Carbonate + Vit D 1 TAB PO SCH (08:46)
[2019-03-05] MEDS: Aspirin 325 mg Enteric Coated Tablet PO SCH (08:46)
[2019-03-05] MEDS: Loratadine 10 MG TAB PO SCH (08:46)
[2019-03-05] MEDS: Citalopram 20 MG TAB PO SCH (08:46)
[2019-03-05] MEDS: Atenolol 25 MG TAB PO SCH (08:46)
[2019-03-05] MEDS: Enoxaparin Sodium 40 MG/0.4 ML SYRINGE SC SCH (08:47)
[2019-03-05] MEDS: HumaLOG 300 UNITS/3 ML VIAL SC PRN ×3 (11:17→21:40)
[2019-03-05] MEDS: Lidocaine 5% Patch TD SCH (13:12)
--- NOTE | 2019-03-05 15:43 | PDOC.HOSPP ---
- Subjective Subjective: Seen and examined. for bedside, many questions were asked, all answered in detail. Updated them that [employer] has initially denied rehab and that an appeal process is underway. Patient is working with therapy well here in the hospital. - Objective Vital Signs & Weight: Vital Signs (12 hours) Temp Pulse Pulse Pulse Resp BP BP 03/05/19 14:15 52 L 55 L 146/81 H 122/74 03/05/19 11:54 98.1 F 56 L 16 03/05/19 08:46 61 03/05/19 08:45 61 03/05/19 07:45 98 F 61 16 BP Pulse Ox 03/05/19 14:15 03/05/19 11:54 124/72 92 L 03/05/19 08:46 93 L 03/05/19 08:45 03/05/19 07:45 118/70 93 L Weight Admit Weight 190 lb 4.8 oz Weight 190 lb 4.8 oz I&O: 03/04/19 03/05/19 03/06/19 06:59 06:59 06:59 Intake Total 120 250 Output Total 650 Balance -530 250 Result Diagrams: 03/01/19 04:52 03/01/19 04:52 Additional Labs: Accuchecks 03/05/19 03/05/19 03/04/19 10:46 06:10 19:28 POC Glucose 241 H 144 H 228 H 03/04/19 16:52 POC Glucose 135 H Hospitalist ROS - Review of Systems All other systems reviewed; all pertinent +/- noted in HPI/Subj - Medication Medications: Active Medications Generic Name Dose Route Start Last Admin Trade Name Itz PRN Reason Stop Dose Admin Acetaminophen 650 mg 02/28/19 21:13 03/01/19 11:08 Tylenol PO 650 mg Q4H PRN Administration Headache/Fever/Mild Pain (1-3) Alprazolam 0.25 mg 03/01/19 12:22 03/03/19 23:33 Xanax PO 0.25 mg BIDPRN PRN Administration Anxiety Aspirin 325 mg 03/01/19 09:00 03/05/19 08:46 Ecotrin PO 325 mg DAILY CHARITY Administration Atenolol 25 mg 03/02/19 09:00 03/05/19 08:46 Tenormin PO 25 mg DAILY CHARITY Administration Atorvastatin Calcium 40 mg 03/01/19 21:00 03/04/19 21:39 Lipitor PO 40 mg HS CHARITY Administration Calcium/Vitamin D 1 tab 03/02/19 09:00 03/05/19 08:46 Caltrate 600 + Vit D PO 1 tab DAILY CHARITY Administration Citalopram Hydrobromide 40 mg 03/02/19 09:00 03/05/19 08:46 Celexa PO 40 mg DAILY CHARITY Administration Donepezil HCl 10 mg 03/01/19 21:00 03/04/19 21:39 Aricept PO 10 mg HS CHARITY Administration Enoxaparin Sodium 40 mg 03/01/19 09:00 03/05/19 08:47 Lovenox SC 40 mg 0900 CHARITY Administration Fenofibrate 145 mg 03/02/19 09:00 03/05/19 08:45 Tricor PO 145 mg DAILY CHARITY Administration Insulin Human Lispro 0 units 03/01/19 05:54 03/05/19 11:17 Humalog SC 3 unit .MILD SLIDING SCALE PRN Administration Mild Correctional Scale Iron/Minerals/Multivitamins 1 tab 03/02/19 09:00 03/05/19 08:45 Theragran M PO 1 tab DAILY CHARITY Administration Lidocaine 1 patch 03/02/19 11:00 03/05/19 13:12 Lidoderm 5% Patch TD 1 patch 1100 CHARITY Administration Lisinopril 5 mg 03/03/19 09:00 03/05/19 08:45 Zestril PO 5 mg DAILY CHARITY Administration Loratadine 10 mg 03/02/19 09:00 03/05/19 08:46 Claritin PO 10 mg DAILY CHARITY Administration Miscellaneous Medication 1 each 03/02/19 23:00 03/05/19 06:48 Lidocaine Patch Removal TOP Not Given 2300 CHARITY Sodium Chloride 10 ml 02/28/19 21:17 03/05/19 08:47 Flush - Normal Saline IVF 10 ml PRN PRN Administration Saline Flush - Exam General Appearance: NAD, awake alert Eye: anicteric sclera ENT: normocephalic atraumatic, moist mucosa Neck: supple, symmetric, no lymphadenopathy Heart: RRR, no murmur, no gallops, no rubs Respiratory: CTAB, no wheezes, no rales Gastrointestinal: soft, non-tender, no guarding, no rigidity Extremities: no edema Skin: no lesions, no rashes Neurological: cranial nerve grossly intact, no weakness Musculoskeletal: generalized weakness Psychiatric: normal affect, A&O x 3 Hosp A/P (1) CVA (cerebral vascular accident) Code(s): I63.9 - CEREBRAL INFARCTION, UNSPECIFIED Status: Acute Qualifiers: Laterality of affected vessel: right (2) Dementia Code(s): F03.90 - UNSPECIFIED DEMENTIA WITHOUT BEHAVIORAL DISTURBANCE Status: Chronic (3) Diabetes mellitus Code(s): E11.9 - TYPE 2 DIABETES MELLITUS WITHOUT COMPLICATIONS Status: Chronic (4) Dyslipidemia Code(s): E78.5 - HYPERLIPIDEMIA, UNSPECIFIED Status: Chronic (5) HTN (hypertension) Code(s): I10 - ESSENTIAL (PRIMARY) HYPERTENSION Status: Chronic Qualifiers: Hypertension type: essential hypertension Qualified Code(s): I10 - Essential (primary) hypertension (6) Osteoarthritis Code(s): M19.90 - UNSPECIFIED OSTEOARTHRITIS, UNSPECIFIED SITE Status: Chronic (7) Osteoporosis Code(s): M81.0 - AGE-RELATED OSTEOPOROSIS W/O CURRENT PATHOLOGICAL FRACTURE Status: Chronic - Plan Plan: D/c planning to acute rehab Avoidable days to [employer] Medically stable for lower level of care cardiology consultation, recommendations appreciated neurology consultation, recommendations appreciated continuous telemetry to monitor for arrhythmia, may require extended monitoring specialist in the outpatient setting CVA regimen: - aspirin 325 mg daily - lisinopril 5 mg daily - atorvastatin 40 mg daily continue other home medications as able CM evaluation for rehab placement PT/ OT/ ST eval and treat
[2019-03-05] MEDS: Atorvastatin Calcium 40 MG TAB PO SCH (21:39)
[2019-03-05] MEDS: Donepezil HCl 10 MG TAB PO SCH (21:39)
[2019-03-05] MEDS: ALPRAZolam 0.25 MG TAB PO PRN (22:25)
[2019-03-06] MEDS: Atenolol 25 MG TAB PO SCH (09:44)
[2019-03-06] MEDS: Calcium Carbonate + Vit D 1 TAB PO SCH (09:46)
[2019-03-06] MEDS: Aspirin 325 mg Enteric Coated Tablet PO SCH (09:46)
[2019-03-06] MEDS: Multivitamin W/ Minerals 1 TAB PO SCH (09:46)
[2019-03-06] MEDS: Fenofibrate Nanocrystallized 145 MG TAB PO SCH (09:46)
[2019-03-06] MEDS: Lisinopril 5 MG TAB PO SCH (09:46)
[2019-03-06] MEDS: Citalopram 20 MG TAB PO SCH (09:47)
[2019-03-06] MEDS: Enoxaparin Sodium 40 MG/0.4 ML SYRINGE SC SCH (09:47)
[2019-03-06] MEDS: Loratadine 10 MG TAB PO SCH (09:47)
[2019-03-06] MEDS: HumaLOG 300 UNITS/3 ML VIAL SC PRN ×2 (11:39→20:40)
[2019-03-06] MEDS: Lidocaine 5% Patch TD SCH (11:39)
--- NOTE | 2019-03-06 16:11 | PDOC.HOSPP ---
- Subjective Subjective: Seen and examined. Patient in good spirits. at bedside, all questions answered in detail. They are disappointed with the amount of therapy that he has received while here in the hospital they were hoping that he could be transition to rehab. Unfortunately insurance has denied them, appeal process has been initiated by case management. Patient and stating that they may elect to go home with home healthcare tomorrow. - Objective Vital Signs & Weight: Vital Signs (12 hours) Temp Pulse Resp BP BP Pulse Ox 03/06/19 16:00 97.3 F L 53 L 20 112/70 92 L 03/06/19 11:24 97.6 F 54 L 22 H 112/66 94 L 03/06/19 09:46 60 132/75 03/06/19 09:44 60 132/75 03/06/19 08:21 97.6 F 56 L 20 156/83 H 92 L Weight Admit Weight 190 lb 4.8 oz Weight 190 lb 4.8 oz I&O: 03/05/19 03/06/19 03/07/19 06:59 06:59 06:59 Intake Total 120 350 Output Total 650 100 100 Balance -530 250 -100 Result Diagrams: 03/01/19 04:52 03/01/19 04:52 Additional Labs: Accuchecks 03/06/19 03/06/19 03/05/19 10:21 06:26 19:34 POC Glucose 217 H 137 H 275 H 03/05/19 17:12 POC Glucose 258 H Hospitalist ROS - Review of Systems All other systems reviewed; all pertinent +/- noted in HPI/Subj - Medication Medications: Active Medications Generic Name Dose Route Start Last Admin Trade Name Freq PRN Reason Stop Dose Admin Acetaminophen 650 mg 02/28/19 21:13 03/01/19 11:08 Tylenol PO 650 mg Q4H PRN Administration Headache/Fever/Mild Pain (1-3) Alprazolam 0.25 mg 03/01/19 12:22 03/05/19 22:25 Xanax PO 0.25 mg BIDPRN PRN Administration Anxiety Aspirin 325 mg 03/01/19 09:00 03/06/19 09:46 Ecotrin PO 325 mg DAILY CHARITY Administration Atenolol 25 mg 03/02/19 09:00 03/06/19 09:44 Tenormin PO 25 mg DAILY CHARITY Administration Atorvastatin Calcium 40 mg 03/01/19 21:00 03/05/19 21:39 Lipitor PO 40 mg HS CHARITY Administration Calcium/Vitamin D 1 tab 03/02/19 09:00 03/06/19 09:46 Caltrate 600 + Vit D PO 1 tab DAILY CHARITY Administration Citalopram Hydrobromide 40 mg 03/02/19 09:00 03/06/19 09:47 Celexa PO 40 mg DAILY CHARITY Administration Donepezil HCl 10 mg 03/01/19 21:00 03/05/19 21:39 Aricept PO 10 mg HS CHARITY Administration Enoxaparin Sodium 40 mg 03/01/19 09:00 03/06/19 09:47 Lovenox SC 40 mg 0900 CHARITY Administration Fenofibrate 145 mg 03/02/19 09:00 03/06/19 09:46 Tricor PO 145 mg DAILY CHARITY Administration Insulin Human Lispro 0 units 03/01/19 05:54 03/06/19 11:39 Humalog SC 3 unit .MILD SLIDING SCALE PRN Administration Mild Correctional Scale Iron/Minerals/Multivitamins 1 tab 03/02/19 09:00 03/06/19 09:46 Theragran M PO 1 tab DAILY CHARITY Administration Lidocaine 1 patch 03/02/19 11:00 03/06/19 11:39 Lidoderm 5% Patch TD 1 patch 1100 CHARITY Administration Lisinopril 5 mg 03/03/19 09:00 03/06/19 09:46 Zestril PO 5 mg DAILY CHARITY Administration Loratadine 10 mg 03/02/19 09:00 03/06/19 09:47 Claritin PO 10 mg DAILY CHARITY Administration Miscellaneous Medication 1 each 03/02/19 23:00 03/05/19 22:27 Lidocaine Patch Removal TOP 1 each 2300 CHARITY Administration Sodium Chloride 10 ml 02/28/19 21:17 03/05/19 08:47 Flush - Normal Saline IVF 10 ml PRN PRN Administration Saline Flush - Exam General Appearance: NAD, awake alert Eye: anicteric sclera ENT: normocephalic atraumatic, moist mucosa Neck: supple, symmetric, no lymphadenopathy Heart: RRR, no murmur, no gallops Respiratory: CTAB, no wheezes, no rales, no ronchi Gastrointestinal: soft, non-tender, non-distended, no guarding, no rigidity Extremities: no edema Skin: no lesions, no rashes Neurological: cranial nerve grossly intact, no focal deficits Musculoskeletal: generalized weakness Psychiatric: normal affect, A&O x 3 Hosp A/P (1) CVA (cerebral vascular accident) Code(s): I63.9 - CEREBRAL INFARCTION, UNSPECIFIED Status: Acute Qualifiers: Laterality of affected vessel: right (2) Dementia Code(s): F03.90 - UNSPECIFIED DEMENTIA WITHOUT BEHAVIORAL DISTURBANCE Status: Chronic (3) Diabetes mellitus Code(s): E11.9 - TYPE 2 DIABETES MELLITUS WITHOUT COMPLICATIONS Status: Chronic (4) Dyslipidemia Code(s): E78.5 - HYPERLIPIDEMIA, UNSPECIFIED Status: Chronic (5) HTN (hypertension) Code(s): I10 - ESSENTIAL (PRIMARY) HYPERTENSION Status: Chronic Qualifiers: Hypertension type: essential hypertension Qualified Code(s): I10 - Essential (primary) hypertension (6) Osteoarthritis Code(s): M19.90 - UNSPECIFIED OSTEOARTHRITIS, UNSPECIFIED SITE Status: Chronic (7) Osteoporosis Code(s): M81.0 - AGE-RELATED OSTEOPOROSIS W/O CURRENT PATHOLOGICAL FRACTURE Status: Chronic - Plan Plan: D/c planning to acute rehab vs home health Avoidable days to [employer] Medically stable for lower level of care cardiology consultation, recommendations appreciated neurology consultation, recommendations appreciated continuous telemetry to monitor for arrhythmia, 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
[2019-03-06] MEDS: metFORMIN 500 MG TAB PO SCH (17:55)
[2019-03-06] MEDS: Donepezil HCl 10 MG TAB PO SCH (20:39)
[2019-03-06] MEDS: Atorvastatin Calcium 40 MG TAB PO SCH (20:39)
[2019-03-06] MEDS: Lidocaine Patch Removal 1 EACH TOP SCH (22:31)
[2019-03-07] MEDS: HumaLOG 300 UNITS/3 ML VIAL SC PRN (06:44)
[2019-03-07 08:02] VITALS: TEMP 98.3
[2019-03-07] MEDS ORDERED: Alogliptin 25 MG TAB PO SCH (09:00)
[2019-03-07] MEDS: Atenolol 25 MG TAB PO SCH (09:13)
[2019-03-07] MEDS: Citalopram 20 MG TAB PO SCH (09:14)
[2019-03-07] MEDS: Lisinopril 5 MG TAB PO SCH (09:14)
[2019-03-07] MEDS: Loratadine 10 MG TAB PO SCH (09:14)
[2019-03-07] MEDS: Aspirin 325 mg Enteric Coated Tablet PO SCH (09:15)
[2019-03-07] MEDS: metFORMIN 500 MG TAB PO SCH (09:16)
[2019-03-07] MEDS: Fenofibrate Nanocrystallized 145 MG TAB PO SCH (09:16)
[2019-03-07] MEDS: Multivitamin W/ Minerals 1 TAB PO SCH (09:16)
[2019-03-07] MEDS: Calcium Carbonate + Vit D 1 TAB PO SCH (09:17)
[2019-03-07] MEDS: Enoxaparin Sodium 40 MG/0.4 ML SYRINGE SC SCH (09:18)
[2019-03-07 10:30] VITALS: BP 119/73
[2019-03-07] MEDS: Lidocaine 5% Patch TD SCH (11:27)
--- NOTE | 2019-03-07 18:19 | DIS ---
DATE OF ADMISSION: 03/01/2019 DATE OF DISCHARGE: 03/07/2019 REASON FOR HOSPITALIZATION: Weakness. SIGNIFICANT FINDINGS: The patient was found to have acute frontal CVA, confirmed on MRI of the brain-please see full report for details. PROCEDURES PERFORMED/TREATMENTS RENDERED: The patient was seen and had a complete stroke workup per Neurology. Please see full radiographic imaging and laboratory data for all details. CONDITION ON DISCHARGE: Stable. SPECIFIC INSTRUCTIONS FOR THE PATIENT/FAMILY: 1. The patient is recommended to take all medications as directed, to be re-evaluated by primary care physician, Neurology, and Cardiology in the outpatient clinic in the next 1 to 2 weeks. 2. The patient is recommended to follow up with primary care physician in the next 5 to 7 days. 3. The patient is recommended to follow up with Cardiology for Holter monitor. Follow up in the outpatient clinic as directed. 4. The patient is recommended to follow up with Neurology in the next 2 to 3 weeks. 5. The patient is recommended to return to Acute Care Hospital immediately if signs or symptoms return, worsen, or any other new symptoms occur. DISCHARGE MEDICATIONS: Please see full discharge medication list for details with the following new medications. 1. Lisinopril 5 mg one tablet p.o. daily. 2. Atorvastatin 40 mg one tablet p.o. at bedtime. 3. Aspirin 325 mg one tablet p.o. daily. 4. Lidocaine 5% patch transdermal daily p.r.n. pain. 5. All other home medications continue without change. HOSPITAL COURSE: Mr. Granados is a very pleasant 83-year-old gentleman who presented to [facility] on 03/01[facility]2019 with weakness. The patient was concerned for acute cerebrovascular accident and underwent a stroke workup and found to have an abnormal MRI with the evidence of acute small right upper frontal cerebral white matter lacunar infarct-please see full MRI report for details. Patient's remainder of his workup was benign including echocardiogram, carotid ultrasound study, and metabolic workup. In discussing with the patient on what could have caused this stroke, paroxysmal atrial fibrillation is high on the list. The patient did not have any episodes of atrial fibrillation throughout his hospitalization and he was on continuous telemetry throughout. I did consult the music teacher to evaluate the patient in the outpatient setting with Holter monitor and this was set up prior to discharge. With Holter monitor being set up, the patient was recommended safe for discharge to rehabilitation facility. Unfortunately, the patient's insurance did initially deny the patient to go to acute rehab. The patient's family then selected that he would be better cared for in the home setting and they have all of the equipment including a lift, which helps him get in and out of bed. The patient has elected to go home with home healthcare and they do have personal care assistance/personal trainers, who can help rehabilitate him in the home setting. Unfortunately, as his insurance [employer] has denied rehabilitation placement. The patient did have rehabilitation with physical therapy and occupational therapy while he was in the acute care hospital and over his 7-day course of hospitalization, he did have improvements in his physical strength and returning near his baseline with Physical Therapy and Occupational Therapy's help. The patient recommended safe for discharge with close followup in the outpatient setting. The patient recommended to take all medications as directed, to be re-evaluated by primary care physician, Cardiology, and Neurology. The patient is recommended to return to acute care hospital immediately if signs or symptoms return, worsen, or any other new symptoms occur. Greater than 40 minutes spent coordinating care and discharge process for this patient. Job ID: [id number]
== END 2019-03-07 13:19 | disposition home health service (06) | DRG 65 ==
LOC: ERS 11:26 → ERHOLD 16:02 → 2SE 23:16 → OBSVTOIN 03-01 11:00
PROVIDERS: ADMIT Internal Medicine; ATTEND Internal Medicine
DX: I63.9 Cerebral infarction, unspecified (principal); G81.94 Hemiplegia, unspecified affecting left nondominant side; I48.0 Paroxysmal atrial fibrillation; E78.5 Hyperlipidemia, unspecified; G50.0 Trigeminal neuralgia; F03.90 Unspecified dementia, unspecified severity, without behavioral disturbance, psychotic disturbance, mood disturbance, and anxiety; R27.0 Ataxia, unspecified; E86.0 Dehydration; E11.9 Type 2 diabetes mellitus without complications; Z96.619 Presence of unspecified artificial shoulder joint; M81.0 Age-related osteoporosis without current pathological fracture; Z79.01 Long term (current) use of anticoagulants; Z90.49 Acquired absence of other specified parts of digestive tract; R40.2142 Coma scale, eyes open, spontaneous, at arrival to emergency department; R40.2242 Coma scale, best verbal response, confused conversation, at arrival to emergency department; R40.2362 Coma scale, best motor response, obeys commands, at arrival to emergency department
CPT/HCPCS: 36415; 36416; 70450; 70551; 71045; 80048; 80053; 80061; 81003; 82140; 82550; 83690; 83880; 84443; 84484; 85025; 90471; 90670; 93005; 93306; 93880; 96360; 96361; G0009; J1650